=== PATIENT | male | born 1945 | race Caucasian/White ===

== ENCOUNTER 2024-03-12 22:29 | Inpatient (IN) | payer BC, MEDICAID, MEDICARE ==
[~2024-03-12] VITALS: Ht 172.7 cm; Wt 88.0 kg
[2024-03-12] MEDS ORDERED: VANCOMYCIN 1G PREMIX 200 ML IV ONE (23:00)
[2024-03-12 23:16] LABS: HEMATOCRIT. 37.5 % (42.0-52.0); HEMOGLOBIN. 11.6 g/dL (14.0-18.0); MEAN CORPUSCULAR HEMOGLOBIN 28.9 pg (28.0-32.0); MEAN CORPUSCULAR HGB CONC 30.8 g/dL (31.0-37.0); MEAN CORPUSCULAR VOLUME 93.8 fL (80.0-94.0); MEAN PLATELET VOLUME 8.1 fl (7.4-10.4); PLATELET 279 x1000/uL (130-400); RED CELL DISTRIBUTION WIDTH 21.2 % (11.6-14.6); WHITE BLOOD COUNT 10.8 x1000/uL (4.5-11.0)
[2024-03-12 23:17] LABS: CHLORIDE 110 mEq/L (98-107); POTASSIUM 5.7 mEq/L (3.5-5.1); SODIUM 146 mEq/L (136-145)
[2024-03-12 23:18] LABS: CARBON DIOXIDE 27 mEq/L (21-32)
[2024-03-12 23:23] LABS: CREATININE 2.5 mg/dL (0.6-1.3); GLUCOSE 70 mg/dL (70-105); UREA NITROGEN BLOOD 45 mg/dL (9-23)
[2024-03-12 23:25] LABS: ALANINE AMINOTRANSFERASE 986 IU/L (10-49); ALBUMIN 2.9 g/dL (3.2-4.8); BILIRUBIN DIRECT 0.5 mg/dL (<=3.0); BILIRUBIN TOTAL 0.8 mg/dL (0.1-1.0); DIFFERENTIAL COMMENT 1; INR 1.9; PROTEIN TOTAL 6.7 g/dL (6.0-8.3)
[2024-03-12] MEDS: SODIUM CHLORIDE 0.9% (SEPSIS BOLUS) IV ONE (23:26)
[2024-03-12 23:36] LABS: ASPARTATE AMINOTRANSFERASE 1675 IU/L (<34)
[2024-03-12 23:53] LABS: TROPONIN I HIGH SENSITIVITY 289 ng/L (3.0-53)
[2024-03-13] VITALS (86 sets, daily range): BP systolic 45–145; BP diastolic 30–97; PULSE 62–133; RESP 18–23; TEMP 36.00288–36.78072; O2SAT 94–100
[2024-03-13] MEDS ORDERED: ETOMIDATE 2MG/ML 10ML VIAL IV ONE (00:10)
[2024-03-13] MEDS: PIPERACILLIN/TAZO 3.375G/50ML 50 ML IV NR (00:15)
[2024-03-13 00:20] LABS: BG BASE EXCESS -4.5 mmol/L (-2.0-3.0); BG DEOXYHEMOGLOBIN 4.2 % (0.0-5.0); BG FRACTION INSPIRED OXYGEN 100; BG HCO3 ACT 26.2 mmol/L (21.0-28.0); BG OXYGEN SATURATION 95.8 % (94.0-98.0); BG OXYHEMOGLOBIN 94.8 % (94.0-98.0); BG PCO2 81.2 mmHg (35.0-48.0); BG PH 7.126 (7.350-7.450); BG PO2 105.6 mmHg (83.0-108.0); BG SAMPLE SITE RIGHT BRACHIAL; BG VENT MODE MASK - NRB
[2024-03-13] MEDS ORDERED: ALBUTEROL (0.083%) 2.5MG/3ML NEB HHN SCH (00:30)
[2024-03-13] MEDS ORDERED: CALCIUM GLUCONATE 1,000 MG in DEXT 5% WATER 100 ML IV ONE (00:30)
[2024-03-13] MEDS: VECURONIUM BROMIDE 10 MG/VIAL IV NR (00:39)
[2024-03-13] MEDS: ETOMIDATE 2MG/ML 10ML VIAL IV NR (00:40)
[2024-03-13 01:48] LABS: BG BASE EXCESS -2.2 mmol/L (-2.0-3.0); BG CARBOXYHEMOGLOBIN 0.4 % (0.5-1.5); BG DEOXYHEMOGLOBIN 2.3 % (0.0-5.0); BG FRACTION INSPIRED OXYGEN 100; BG HCO3 ACT 21.8 mmol/L (21.0-28.0); BG METHEMOGLOBIN 0.3 % (0.5-1.5); BG OXYGEN SATURATION 97.7 % (94.0-98.0); BG PCO2 35.1 mmHg (35.0-48.0); BG PH 7.412 (7.350-7.450); BG PO2 99.2 mmHg (83.0-108.0); BG SAMPLE SITE RIGHT BRACHIAL; BG TOTAL HEMOGLOBIN 11.7 g/dL (13.5-17.5); BG TOTAL RESPIRATORY RATE 20 b/min; BG VENT MODE VENT - AC
[2024-03-13] MEDS: VANCOMYCIN 1G PREMIX 200 ML IV NR (02:03)
[2024-03-13] MEDS: NOREPINEPHRINE 8MG/250ML PMX 250 ML IV PRN (02:06)
[2024-03-13] MEDS: CALCIUM GLUCONATE 1GM PREMIX 50 ML IV NR (02:16)
[2024-03-13] MEDS: INSULIN REGULAR (HUMULIN R) 1000UNITS/10ML VIAL IV NR (02:16)
[2024-03-13] MEDS: DEXTROSE 50% WATER 50ML SYRINGE IV NR (02:16)
[2024-03-13] MEDS: SODIUM BICARBONATE 8.4% 50MEQ/50ML SYR IV NR (02:16)
[2024-03-13] MEDS: PROPOFOL 10MG/ML 100ML 100 ML IV PRN ×2 (02:42→14:41)
[2024-03-13 07:09] LABS: PLATELET ESTIMATE NORMAL
[2024-03-13] MEDS ORDERED: CLONIDINE 0.1MG TABLET PO PRN (08:30)
[2024-03-13] MEDS ORDERED: IPRATROPIUM/ALBUTEROL 0.5-3(2.5)MG/3ML NEB HHN PRN (08:30)
[2024-03-13] MEDS ORDERED: DOCUSATE SODIUM 100MG CAPSULE PO PRN (08:30)
[2024-03-13] MEDS ORDERED: ONDANSETRON HCL 4MG/2ML INJ IV PRN (08:30)
[2024-03-13 10:19] LABS: TROPONIN I HIGH SENSITIVITY 1935 ng/L (3.0-53)
[2024-03-13] MEDS: DEXT 5%/0.45% NACL 1000ML 1,000 ML IV SCH (10:54)
[2024-03-13 11:25] LABS: CALCIUM 7.5 mg/dL (8.7-10.4); POTASSIUM 4.1 mEq/L (3.5-5.1)
[2024-03-13 11:30] LABS: CREATININE 2.4 mg/dL (0.6-1.3)
[2024-03-13 11:52] LABS: HEPATITIS B SURFACE ANTIGEN NEGATIVE (Negative)
[2024-03-13 11:58] LABS: HEMATOCRIT 33.6 % (42.0-52.0); HEMOGLOBIN 10.7 g/dL (14.0-18.0); MEAN CORPUSCULAR HEMOGLOBIN 28.7 pg (28.0-32.0); MEAN CORPUSCULAR HGB CONC 31.8 g/dL (31.0-37.0); MEAN CORPUSCULAR VOLUME 90.3 fL (80.0-94.0); PLATELET 211 x1000/uL (130-400); RED BLOOD CELL COUNT 3.73 mill/uL (4.7-6.1); WHITE BLOOD COUNT 7.8 x1000/uL (4.5-11.0)
[2024-03-13 12:13] LABS: HEPATITIS C AB NON REACTIVE (Neg) (Negative)
[2024-03-13 12:48] LABS: HEPATITIS B SURFACE ANTIGEN NEGATIVE (Negative)
[2024-03-13 12:58] LABS: CLARITY URINE TURBID (CLEAR); COLOR URINE DARK YELLOW (YELLOW); GLUCOSE URINE NEGATIVE (NEGATIVE); KETONES URINE NEGATIVE (NEGATIVE); LEUKOCYTE ESTERASE URINE 3+ (NEGATIVE); NITRITE URINE NEGATIVE (NEGATIVE); OCCULT BLOOD URINE 3+ (NEGATIVE); PH URINE 5.5 (4.5-8.0); PROTEIN URINE 3+ (NEGATIVE)
[2024-03-13 13:08] LABS: HEPATITIS A AB IGM NEGATIVE (Negative)
[2024-03-13] MEDS: PIPERACILLIN/TAZO 3.375G/50ML 50 ML IV SCH (13:08)
[2024-03-13 13:09] LABS: HEPATITIS B CORE AB IGM NEGATIVE (Negative); HEPATITIS C AB NON REACTIVE (Neg) (Negative)
[2024-03-13 13:47] LABS: SQUAMOUS EPITHELIAL CELL URINE NONE SEEN /lpf (RARE/1+)
[2024-03-13 13:48] LABS: BACTERIA URINE 4+; WBC URINE TNTC /hpf (0-2)
[2024-03-13 13:49] LABS: RBC URINE 50-100 /hpf (0-2)
[2024-03-13] MEDS: ENOXAPARIN 80MG/0.8ML SYR SUBCUT SCH (14:52)
[2024-03-13] MEDS: PANTOPRAZOLE SODIUM 40 MG/VIAL IV SCH (14:55)
[2024-03-13] MEDS: MIDODRINE HCL 5MG TABLET PO SCH (17:09)
[2024-03-13] MEDS: VANCOMYCIN 500MG PREMIX 100 ML IV SCH (20:54)
[2024-03-14] VITALS (99 sets, daily range): BP systolic 78–119; BP diastolic 55–88; PULSE 49–92; RESP 9–20; TEMP 36.72516–37.00296; O2SAT 95–100
[2024-03-14 05:29] LABS: BASOPHILS % 0.1 % (0.0-2.0); EOSINOPHILS % 0.4 % (0.0-5.0); HEMATOCRIT. 34.8 % (42.0-52.0); HEMOGLOBIN. 11.2 g/dL (14.0-18.0); LYMPHOCYTES % 10.3 % (20.0-50.0); MEAN CORPUSCULAR HEMOGLOBIN 29.1 pg (28.0-32.0); MEAN CORPUSCULAR HGB CONC 32.1 g/dL (31.0-37.0); MEAN CORPUSCULAR VOLUME 90.5 fL (80.0-94.0); MEAN PLATELET VOLUME 8.2 fl (7.4-10.4); MONOCYTES % 3.1 % (2.0-8.0); NEUTROPHILS % 86.1 % (40.0-76.0); PLATELET 148 x1000/uL (130-400); RED BLOOD CELL COUNT 3.84 mill/uL (4.7-6.1); RED CELL DISTRIBUTION WIDTH 23.1 % (11.6-14.6); WHITE BLOOD COUNT 7.2 x1000/uL (4.5-11.0)
[2024-03-14 05:36] LABS: CARBON DIOXIDE 26 mEq/L (21-32); CHLORIDE 111 mEq/L (98-107); POTASSIUM 3.4 mEq/L (3.5-5.1); SODIUM 146 mEq/L (136-145)
[2024-03-14 05:37] LABS: CALCIUM 7.2 mg/dL (8.7-10.4)
[2024-03-14 05:41] LABS: CREATININE 2.4 mg/dL (0.6-1.3); GLUCOSE 137 mg/dL (70-105); TROPONIN I HIGH SENSITIVITY 1174 ng/L (3.0-53)
[2024-03-14 05:42] LABS: TRIGLYCERIDE 174 mg/dL (0-150); UREA NITROGEN BLOOD 52 mg/dL (9-23)
[2024-03-14 05:43] LABS: ALANINE AMINOTRANSFERASE 808 IU/L (10-49); ALBUMIN 2.2 g/dL (3.2-4.8); ASPARTATE AMINOTRANSFERASE 928 IU/L (<34)
[2024-03-14 05:44] LABS: BILIRUBIN TOTAL 0.9 mg/dL (0.1-1.0)
[2024-03-14 05:46] LABS: DIFFERENTIAL COMMENT 1
[2024-03-14 05:54] LABS: PREALBUMIN < 5.0 mg/dl (10.0-40.0)
[2024-03-14] MEDS: KCL 20MEQ/100ML PREMIX 100 ML IV NR (11:31)
[2024-03-14 11:38] LABS: BG BASE EXCESS 3.9 mmol/L (-2.0-3.0); BG CARBOXYHEMOGLOBIN 0.4 % (0.5-1.5); BG DEOXYHEMOGLOBIN 1.4 % (0.0-5.0); BG FRACTION INSPIRED OXYGEN 40; BG HCO3 ACT 24.7 mmol/L (21.0-28.0); BG METHEMOGLOBIN 0.3 % (0.5-1.5); BG OXYGEN SATURATION 98.6 % (94.0-98.0); BG OXYHEMOGLOBIN 97.9 % (94.0-98.0); BG PCO2 25.7 mmHg (35.0-48.0); BG PO2 112.3 mmHg (83.0-108.0); BG SAMPLE SITE RIGHT BRACHIAL; BG TOTAL HEMOGLOBIN 11.4 g/dL (13.5-17.5); BG VENT MODE VENT - AC
[2024-03-14 15:26] LABS: BG BASE EXCESS 1.9 mmol/L (-2.0-3.0); BG CARBOXYHEMOGLOBIN 0.3 % (0.5-1.5); BG DEOXYHEMOGLOBIN 1.5 % (0.0-5.0); BG FRACTION INSPIRED OXYGEN 35; BG HCO3 ACT 23.6 mmol/L (21.0-28.0); BG METHEMOGLOBIN 0.3 % (0.5-1.5); BG OXYGEN SATURATION 98.5 % (94.0-98.0); BG OXYHEMOGLOBIN 97.9 % (94.0-98.0); BG PCO2 27.3 mmHg (35.0-48.0); BG PH 7.554 (7.350-7.450); BG PO2 127.9 mmHg (83.0-108.0); BG SAMPLE SITE RIGHT BRACHIAL; BG VENT MODE VENT - AC
[2024-03-14] MEDS: MEROPENEM 1G/100ML IV SCH (16:13)
[2024-03-14] MEDS: MIDODRINE HCL 5MG TABLET PO SCH (18:06)
[2024-03-14] MEDS: LORAZEPAM 2MG/ML INJ IV PRN (18:26)
[2024-03-15] VITALS (70 sets, daily range): BP systolic 88–117; BP diastolic 59–88; PULSE 63–77; RESP 7–35; TEMP 35.8362–36.83628; O2SAT 94–100
[2024-03-15 05:49] LABS: POTASSIUM 4.4 mEq/L (3.5-5.1)
[2024-03-15 05:50] LABS: CALCIUM 7.3 mg/dL (8.7-10.4)
[2024-03-15 05:55] LABS: CREATININE 2.1 mg/dL (0.6-1.3)
[2024-03-15 05:56] LABS: HEMATOCRIT 35.8 % (42.0-52.0); HEMOGLOBIN 11.5 g/dL (14.0-18.0); MEAN CORPUSCULAR HEMOGLOBIN 29.2 pg (28.0-32.0); MEAN CORPUSCULAR HGB CONC 32.1 g/dL (31.0-37.0); MEAN CORPUSCULAR VOLUME 91.2 fL (80.0-94.0); PLATELET 102 x1000/uL (130-400); RED BLOOD CELL COUNT 3.93 mill/uL (4.7-6.1); RED CELL DISTRIBUTION WIDTH 24.2 % (11.6-14.6)
[2024-03-15 09:07] LABS: COMPLEMENT C3 65 mg/dL (82-167); COMPLEMENT C4 10 mg/dL (12-38)
[2024-03-15] MEDS: MIDODRINE HCL 5MG TABLET PO SCH (09:15)
[2024-03-15] MEDS ORDERED: NALOXONE HCL 0.4MG/ML VIAL IV PRN (12:00)
[2024-03-15 13:07] LABS: ANTI-NUCLEAR ANTIBODIES DIRECT Negative (Negative)
[2024-03-15] MEDS: MORPHINE SULFATE 2 MG/ML INJ (NOT FOR IM USE) IV PRN (15:59)
[2024-03-15] MEDS: DOCUSATE SODIUM SUGAR FREE 100MG/10ML UDC NG PRN (15:59)
[2024-03-15] MEDS ORDERED: APIX5TAB PO (17:00)
[2024-03-15] MEDS ORDERED: EMPA10TA PO (17:06)
[2024-03-15] MEDS ORDERED: METO-396 PO (17:06)
[2024-03-15] MEDS ORDERED: ATOR20TA65 PO (17:06)
[2024-03-15] MEDS ORDERED: TAMS-11 PO (17:06)
[2024-03-15 17:19] LABS: BG BASE EXCESS 0.3 mmol/L (-2.0-3.0); BG CARBOXYHEMOGLOBIN 0.8 % (0.5-1.5); BG DEOXYHEMOGLOBIN 2.6 % (0.0-5.0); BG FRACTION INSPIRED OXYGEN 35; BG HCO3 ACT 23.9 mmol/L (21.0-28.0); BG OXYGEN SATURATION 97.4 % (94.0-98.0); BG OXYHEMOGLOBIN 96.6 % (94.0-98.0); BG PH 7.452 (7.350-7.450); BG PO2 100.7 mmHg (83.0-108.0); BG SAMPLE SITE UAL; BG TOTAL HEMOGLOBIN 11.4 g/dL (13.5-17.5); BG VENT MODE VENT - AC
[2024-03-15 17:55] LABS: INR 1.4; PARTIAL THROMBOPLASTIN TIME 40.5 sec (23.4-31.0); PROTHROMBIN TIME 14.9 sec (9.6-11.0)
[2024-03-15] MEDS: FUROSEMIDE 40MG/4ML VIAL IVP NR (18:42)
[2024-03-15] MEDS: LACTOBACILLUS GG CAPSULE GT SCH (20:07)
[2024-03-16] VITALS (46 sets, daily range): BP systolic 90–119; BP diastolic 51–81; PULSE 60–130; RESP 6–32; TEMP 36.33624–36.6696; O2SAT 92–100
[2024-03-16] MEDS: ATROPINE SULFATE 1MG/10ML SYR IV PRN (07:05)
[2024-03-16 11:01] LABS: BASOPHILS % 0.1 % (0.0-2.0); EOSINOPHILS % 0.1 % (0.0-5.0); HEMATOCRIT. 34.6 % (42.0-52.0); HEMOGLOBIN. 10.6 g/dL (14.0-18.0); LYMPHOCYTES % 13.8 % (20.0-50.0); MEAN CORPUSCULAR HGB CONC 30.5 g/dL (31.0-37.0); MEAN CORPUSCULAR VOLUME 91.8 fL (80.0-94.0); MEAN PLATELET VOLUME 8.7 fl (7.4-10.4); MONOCYTES % 5.9 % (2.0-8.0); NEUTROPHILS % 80.1 % (40.0-76.0); PLATELET 70 x1000/uL (130-400); POTASSIUM 3.2 mEq/L (3.5-5.1); RED BLOOD CELL COUNT 3.76 mill/uL (4.7-6.1); RED CELL DISTRIBUTION WIDTH 25.9 % (11.6-14.6); WHITE BLOOD COUNT 6.8 x1000/uL (4.5-11.0)
[2024-03-16 11:02] LABS: CALCIUM 7.4 mg/dL (8.7-10.4)
[2024-03-16 11:07] LABS: CREATININE 1.8 mg/dL (0.6-1.3)
[2024-03-16 11:24] LABS: DIFFERENTIAL COMMENT 1
[2024-03-16 12:01] LABS: ALANINE AMINOTRANSFERASE 532 IU/L (10-49); ASPARTATE AMINOTRANSFERASE 306 IU/L (<34)
[2024-03-16 12:02] LABS: ALBUMIN 2.1 g/dL (3.2-4.8); BILIRUBIN DIRECT 0.4 mg/dL (<=3.0); BILIRUBIN TOTAL 0.8 mg/dL (0.1-1.0); PROTEIN TOTAL 4.8 g/dL (6.0-8.3)
[2024-03-16] MEDS ORDERED: LIDOCAINE HCL 1% 10 MG/ML 10ML VIAL ONE (12:27)
[2024-03-16 13:17] LABS: ALBUMIN 2.1 g/dL (3.2-4.8)
[2024-03-16] MEDS: ACETAMINOPHEN 325MG TABLET PO PRN (17:36)
[2024-03-16] MEDS: APIXABAN 5 MG TABLET PO SCH (17:36)
[2024-03-16] MEDS: FOLIC ACID/VITAMIN B COMP W-C TABLET PO SCH (17:36)
[2024-03-17] VITALS (81 sets, daily range): BP systolic 70–121; BP diastolic 42–102; PULSE 74–141; RESP 8–32; TEMP 36.3918–36.9474; O2SAT 99–100
[2024-03-17 05:20] LABS: BASOPHILS % 0.2 % (0.0-2.0); EOSINOPHILS % 0.1 % (0.0-5.0); HEMATOCRIT. 34.6 % (42.0-52.0); HEMOGLOBIN. 11.3 g/dL (14.0-18.0); MEAN CORPUSCULAR HEMOGLOBIN 29.1 pg (28.0-32.0); MEAN CORPUSCULAR HGB CONC 32.6 g/dL (31.0-37.0); MEAN CORPUSCULAR VOLUME 89.5 fL (80.0-94.0); MEAN PLATELET VOLUME 8.9 fl (7.4-10.4); MONOCYTES % 9.4 % (2.0-8.0); NEUTROPHILS % 72.3 % (40.0-76.0); PLATELET 68 x1000/uL (130-400); RED BLOOD CELL COUNT 3.87 mill/uL (4.7-6.1); RED CELL DISTRIBUTION WIDTH 26.7 % (11.6-14.6); WHITE BLOOD COUNT 8.2 x1000/uL (4.5-11.0)
[2024-03-17 05:30] LABS: CHLORIDE 111 mEq/L (98-107); POTASSIUM 2.9 mEq/L (3.5-5.1); SODIUM 148 mEq/L (136-145)
[2024-03-17 05:32] LABS: CALCIUM 7.7 mg/dL (8.7-10.4); CARBON DIOXIDE 29 mEq/L (21-32)
[2024-03-17 05:35] LABS: DIFFERENTIAL COMMENT 1
[2024-03-17 05:36] LABS: ADD RBC MORPHOLOGY YES
[2024-03-17 05:37] LABS: CREATININE 1.4 mg/dL (0.6-1.3); GLUCOSE 53 mg/dL (70-105); UREA NITROGEN BLOOD 40 mg/dL (9-23)
[2024-03-17 05:38] LABS: ALANINE AMINOTRANSFERASE 413 IU/L (10-49)
[2024-03-17 05:39] LABS: ALBUMIN 2.3 g/dL (3.2-4.8); ASPARTATE AMINOTRANSFERASE 202 IU/L (<34); BILIRUBIN DIRECT 0.6 mg/dL (<=3.0)
[2024-03-17 05:40] LABS: BILIRUBIN TOTAL 1.2 mg/dL (0.1-1.0); PROTEIN TOTAL 5.1 g/dL (6.0-8.3)
[2024-03-17] MEDS: DEXTROSE 50% WATER 50ML SYRINGE IV ONE (06:40)
[2024-03-17] MEDS: MAGNESIUM 2 G PREMIX 50 ML IV NR (10:14)
[2024-03-17] MEDS: BLOOD SUGAR DIAGNOSTIC STRIP TEST SCH (11:30)
[2024-03-17] MEDS: INSULIN LISPRO 100 UNITS/ML SUBCUT SCH (12:00)
[2024-03-17] MEDS: POTASSIUM CHLORIDE 20MEQ/PACKET NG SCH (13:21)
[2024-03-17] MEDS: PHENYLEPHRINE 50MG/250ML PMX 250 ML IV PRN (13:21)
[2024-03-17] MEDS: FUROSEMIDE 40MG/4ML VIAL IVP SCH (13:21)
[2024-03-17 14:03] LABS: ANISOCYTOSIS 3+; PLATELET ESTIMATE MARKEDLY DECREASED
[2024-03-17 21:13] LABS: BODY FLUID RBC 1813 /cu mm (0-2000); BODY FLUID WBC 38 /cu mm (0-200)
[2024-03-17 21:14] LABS: BODY FLUID MONOCYTES 3 %
[2024-03-17] MEDS: AMIODARONE 150MG/100ML D5W 100 ML IV NR (22:18)
[2024-03-17 22:38] LABS: BG BASE EXCESS 4.2 mmol/L (-2.0-3.0); BG CARBOXYHEMOGLOBIN 0.8 % (0.5-1.5); BG DEOXYHEMOGLOBIN 1.8 % (0.0-5.0); BG FRACTION INSPIRED OXYGEN 35; BG HCO3 ACT 28.8 mmol/L (21.0-28.0); BG METHEMOGLOBIN 0.3 % (0.5-1.5); BG OXYGEN SATURATION 98.2 % (94.0-98.0); BG OXYHEMOGLOBIN 97.1 % (94.0-98.0); BG PCO2 43.3 mmHg (35.0-48.0); BG PH 7.441 (7.350-7.450); BG PO2 113.5 mmHg (83.0-108.0); BG SAMPLE SITE RIGHT RADIAL; BG TOTAL HEMOGLOBIN 11.9 g/dL (13.5-17.5); BG VENT MODE VENT - SIMV
[2024-03-17 22:55] LABS: CHLORIDE 112 mEq/L (98-107); POTASSIUM 3.7 mEq/L (3.5-5.1); SODIUM 147 mEq/L (136-145)
[2024-03-17 22:56] LABS: CALCIUM 7.5 mg/dL (8.7-10.4); CARBON DIOXIDE 29 mEq/L (21-32)
[2024-03-17 23:01] LABS: CREATININE 1.3 mg/dL (0.6-1.3); GLUCOSE 107 mg/dL (70-105); UREA NITROGEN BLOOD 45 mg/dL (9-23)
[2024-03-17 23:03] LABS: PHOSPHORUS 2.9 mg/dL (2.5-4.9)
[2024-03-17] MEDS: AMIODARONE HCL 900 MG in DEXT 5% WATER 482 ML IV PRN (23:40)
[2024-03-18] VITALS (107 sets, daily range): BP systolic 83–140; BP diastolic 59–114; PULSE 76–131; RESP 8–38; TEMP 36.3918–36.72516; O2SAT 95–100
[2024-03-18 06:39] LABS: CHLORIDE 112 mEq/L (98-107); POTASSIUM 3.5 mEq/L (3.5-5.1); SODIUM 147 mEq/L (136-145)
[2024-03-18 06:43] LABS: CALCIUM 8.1 mg/dL (8.7-10.4); CARBON DIOXIDE 30 mEq/L (21-32)
[2024-03-18 06:46] LABS: BASOPHILS % 0.3 % (0.0-2.0); EOSINOPHILS % 0.3 % (0.0-5.0); HEMATOCRIT. 33.6 % (42.0-52.0); HEMOGLOBIN. 10.7 g/dL (14.0-18.0); LYMPHOCYTES % 18.3 % (20.0-50.0); MEAN CORPUSCULAR HEMOGLOBIN 29.3 pg (28.0-32.0); MEAN CORPUSCULAR HGB CONC 31.8 g/dL (31.0-37.0); MEAN CORPUSCULAR VOLUME 91.9 fL (80.0-94.0); MEAN PLATELET VOLUME 8.9 fl (7.4-10.4); NEUTROPHILS % 72.1 % (40.0-76.0); PLATELET 78 x1000/uL (130-400); RED BLOOD CELL COUNT 3.66 mill/uL (4.7-6.1); RED CELL DISTRIBUTION WIDTH 27.4 % (11.6-14.6)
[2024-03-18 06:47] LABS: ALANINE AMINOTRANSFERASE 288 IU/L (10-49); UREA NITROGEN BLOOD 40 mg/dL (9-23)
[2024-03-18 06:48] LABS: CREATININE 1.2 mg/dL (0.6-1.3); GLUCOSE 104 mg/dL (70-105)
[2024-03-18 06:49] LABS: ASPARTATE AMINOTRANSFERASE 100 IU/L (<34)
[2024-03-18 06:50] LABS: ALBUMIN 2.3 g/dL (3.2-4.8); BILIRUBIN DIRECT 0.4 mg/dL (<=3.0); PHOSPHORUS 2.6 mg/dL (2.5-4.9)
[2024-03-18 06:51] LABS: BILIRUBIN TOTAL 0.7 mg/dL (0.1-1.0); PROTEIN TOTAL 5.1 g/dL (6.0-8.3)
[2024-03-18 06:57] LABS: DIFFERENTIAL COMMENT 1
[2024-03-18 06:58] LABS: ADD RBC MORPHOLOGY NO
[2024-03-18] MEDS: FUROSEMIDE 40MG/4ML VIAL IVP SCH (08:42)
[2024-03-18] MEDS: POTASSIUM CHLORIDE 20MEQ/PACKET NG NR (08:48)
[2024-03-18] MEDS ORDERED: MIDAZOLAM HCL 100 MG in SODIUM CHLORIDE 0.9% 80 ML IV PRN (14:30)
[2024-03-18] MEDS: MIDAZOLAM 100MG/100ML PREMIX IV PRN (15:48)
[2024-03-18] MEDS: AMIODARONE 200MG TABLET PO SCH (21:08)
[2024-03-19] VITALS (67 sets, daily range): BP systolic 93–157; BP diastolic 53–108; PULSE 65–118; RESP 12–29; TEMP 36.22512–37.16964; O2SAT 99–100
[2024-03-19 04:35] LABS: BASOPHILS % 0.3 % (0.0-2.0); EOSINOPHILS % 0.3 % (0.0-5.0); HEMATOCRIT. 33.6 % (42.0-52.0); HEMOGLOBIN. 10.8 g/dL (14.0-18.0); LYMPHOCYTES % 16.2 % (20.0-50.0); MEAN CORPUSCULAR HEMOGLOBIN 29.1 pg (28.0-32.0); MEAN CORPUSCULAR HGB CONC 32.2 g/dL (31.0-37.0); MEAN CORPUSCULAR VOLUME 90.5 fL (80.0-94.0); MEAN PLATELET VOLUME 8.9 fl (7.4-10.4); MONOCYTES % 8.9 % (2.0-8.0); NEUTROPHILS % 74.3 % (40.0-76.0); PLATELET 85 x1000/uL (130-400); RED BLOOD CELL COUNT 3.71 mill/uL (4.7-6.1); RED CELL DISTRIBUTION WIDTH 28.4 % (11.6-14.6); WHITE BLOOD COUNT 5.6 x1000/uL (4.5-11.0)
[2024-03-19 04:41] LABS: CHLORIDE 110 mEq/L (98-107); POTASSIUM 2.9 mEq/L (3.5-5.1); SODIUM 147 mEq/L (136-145)
[2024-03-19 04:42] LABS: CALCIUM 7.9 mg/dL (8.7-10.4); CARBON DIOXIDE 32 mEq/L (21-32)
[2024-03-19 05:19] LABS: CREATININE 0.8 mg/dL (0.6-1.3); GLUCOSE 119 mg/dL (70-105); UREA NITROGEN BLOOD 34 mg/dL (9-23)
[2024-03-19 05:21] LABS: ALANINE AMINOTRANSFERASE 201 IU/L (10-49); ALBUMIN 2.3 g/dL (3.2-4.8); ASPARTATE AMINOTRANSFERASE 54 IU/L (<34); BILIRUBIN DIRECT 0.4 mg/dL (<=3.0); BILIRUBIN TOTAL 0.7 mg/dL (0.1-1.0); PROTEIN TOTAL 5.2 g/dL (6.0-8.3)
[2024-03-19 06:57] LABS: DIFFERENTIAL COMMENT 1
[2024-03-19] MEDS: POTASSIUM CHLORIDE 20MEQ/PACKET PO SCH (09:02)
[2024-03-19] MEDS: ENOXAPARIN 80MG/0.8ML SYR SUBCUT NR (13:45)
[2024-03-19] MEDS: SODIUM CHLORIDE 0.9% IV NR (15:28)
[2024-03-19] MEDS: ALTEPLASE IV NR (15:28)
[2024-03-19] MEDS: DIGOXIN 500MCG/2ML AMP IV NR ×2 (15:30→20:08)
[2024-03-19] MEDS: MORPHINE SULFATE 2 MG/ML INJ (NOT FOR IM USE) IV PRN (15:46)
[2024-03-19] MEDS: BISACODYL 10MG SUPP PR NR (17:52)
[2024-03-19 18:26] LABS: ALBUMIN 2.6 g/dL (3.2-4.8)
[2024-03-19] MEDS: LORAZEPAM 2MG/ML INJ IV PRN (22:18)
[2024-03-20] VITALS (108 sets, daily range): BP systolic 72–136; BP diastolic 44–82; PULSE 50–114; RESP 11–25; TEMP 36.3918–36.6696; O2SAT 95–100
[2024-03-20] MEDS: MORPHINE SULFATE 4 MG/ML INJ (FOR IV/IM USE) IM NR (00:35)
[2024-03-20] MEDS: MIDAZOLAM 100MG/100ML PMX 100 ML IV PRN (00:37)
[2024-03-20] MEDS ORDERED: PHENYLEPHRINE 100 MG in DEXT 5% WATER 240 ML IV PRN (01:45)
[2024-03-20 05:48] LABS: CHLORIDE 110 mEq/L (98-107); POTASSIUM 3.3 mEq/L (3.5-5.1); SODIUM 148 mEq/L (136-145)
[2024-03-20 05:49] LABS: BASOPHILS % 0.3 % (0.0-2.0); EOSINOPHILS % 0.3 % (0.0-5.0); HEMATOCRIT. 33.9 % (42.0-52.0); HEMOGLOBIN. 10.8 g/dL (14.0-18.0); LYMPHOCYTES % 14.9 % (20.0-50.0); MEAN CORPUSCULAR HEMOGLOBIN 29.1 pg (28.0-32.0); MEAN CORPUSCULAR VOLUME 90.9 fL (80.0-94.0); NEUTROPHILS % 75.5 % (40.0-76.0); PLATELET 107 x1000/uL (130-400); RED BLOOD CELL COUNT 3.73 mill/uL (4.7-6.1); RED CELL DISTRIBUTION WIDTH 27.4 % (11.6-14.6)
[2024-03-20 05:51] LABS: CALCIUM 7.9 mg/dL (8.7-10.4); CARBON DIOXIDE 35 mEq/L (21-32)
[2024-03-20 05:53] LABS: UREA NITROGEN BLOOD 27 mg/dL (9-23)
[2024-03-20 05:56] LABS: CREATININE 0.7 mg/dL (0.6-1.3); GLUCOSE 85 mg/dL (70-105)
[2024-03-20 05:57] LABS: ALBUMIN 2.2 g/dL (3.2-4.8)
[2024-03-20 05:58] LABS: ALANINE AMINOTRANSFERASE 154 IU/L (10-49); ASPARTATE AMINOTRANSFERASE 44 IU/L (<34); BILIRUBIN DIRECT 0.4 mg/dL (<=3.0); BILIRUBIN TOTAL 0.9 mg/dL (0.1-1.0)
[2024-03-20 06:33] LABS: DIFFERENTIAL COMMENT 1
[2024-03-20 08:52] LABS: AMYLASE BODY FLUID < 20 IU/L; PROTEIN BODY FLUID 2.2 gm/dL
[2024-03-20 10:26] LABS: BG BASE EXCESS 10.1 mmol/L (-2.0-3.0); BG DEOXYHEMOGLOBIN 1.6 % (0.0-5.0); BG FRACTION INSPIRED OXYGEN 35; BG HCO3 ACT 34.6 mmol/L (21.0-28.0); BG METHEMOGLOBIN 0.3 % (0.5-1.5); BG OXYGEN SATURATION 98.4 % (94.0-98.0); BG OXYHEMOGLOBIN 97.1 % (94.0-98.0); BG PCO2 46.1 mmHg (35.0-48.0); BG PH 7.493 (7.350-7.450); BG PO2 110.6 mmHg (83.0-108.0); BG SAMPLE SITE RIGHT RADIAL; BG TOTAL HEMOGLOBIN 11.7 g/dL (13.5-17.5); BG VENT MODE VENT - AC
[2024-03-20] MEDS: MAGNESIUM 2 G PREMIX 50 ML IV NR (11:32)
[2024-03-20] MEDS: POTASSIUM PHOSPHATE 20 MMOL in DEXT 5% WATER 243.3333 ML IV NR (11:32)
[2024-03-20 15:46] LABS: PROTEIN BODY FLUID 2.3 gm/dL
[2024-03-20] MEDS: SORBITOL 70% SOLN 30ML NG NR (17:37)
[2024-03-20 19:08] LABS: BODY FLUID MONOCYTES 6 %; BODY FLUID RBC 470 /cu mm (0-2000); BODY FLUID WBC 89 /cu mm (0-200)
[2024-03-20] MEDS: SENNOSIDES 8.6MG TABLET PO SCH (20:48)
[2024-03-20] MEDS: AMIODARONE 200MG TABLET NG SCH (20:48)
[2024-03-21] VITALS (104 sets, daily range): BP systolic 91–147; BP diastolic 49–83; PULSE 64–90; RESP 11–28; TEMP 36.16956–36.72516; O2SAT 99–100
[2024-03-21 05:19] LABS: CARBON DIOXIDE 36 mEq/L (21-32); CHLORIDE 107 mEq/L (98-107); POTASSIUM 3.6 mEq/L (3.5-5.1); SODIUM 148 mEq/L (136-145)
[2024-03-21 05:20] LABS: CALCIUM 8.8 mg/dL (8.7-10.4)
[2024-03-21 05:25] LABS: CREATININE 0.7 mg/dL (0.6-1.3); GLUCOSE 88 mg/dL (70-105); UREA NITROGEN BLOOD 25 mg/dL (9-23)
[2024-03-21 05:27] LABS: BASOPHILS % 0.2 % (0.0-2.0); EOSINOPHILS % 0.9 % (0.0-5.0); HEMATOCRIT. 40.9 % (42.0-52.0); HEMOGLOBIN. 12.9 g/dL (14.0-18.0); LYMPHOCYTES % 19.2 % (20.0-50.0); MEAN CORPUSCULAR HEMOGLOBIN 28.9 pg (28.0-32.0); MEAN CORPUSCULAR HGB CONC 31.5 g/dL (31.0-37.0); MEAN CORPUSCULAR VOLUME 91.8 fL (80.0-94.0); MEAN PLATELET VOLUME 9.3 fl (7.4-10.4); MONOCYTES % 7.3 % (2.0-8.0); NEUTROPHILS % 72.4 % (40.0-76.0); PHOSPHORUS 2.3 mg/dL (2.5-4.9); PLATELET 147 x1000/uL (130-400); RED BLOOD CELL COUNT 4.45 mill/uL (4.7-6.1); RED CELL DISTRIBUTION WIDTH 28.4 % (11.6-14.6); WHITE BLOOD COUNT 6.4 x1000/uL (4.5-11.0)
[2024-03-21 06:54] LABS: DIFFERENTIAL COMMENT 1
[2024-03-21] MEDS: DOCUSATE SODIUM SUGAR FREE 100MG/10ML UDC NG SCH (08:23)
[2024-03-21] MEDS: POTASSIUM PHOSPHATE 20 MMOL in DEXT 5% WATER 243.3333 ML IV NR (09:12)
[2024-03-22] VITALS (81 sets, daily range): BP systolic 107–159; BP diastolic 59–91; PULSE 68–94; RESP 10–28; TEMP 36.33624–36.72516; O2SAT 83–100
[2024-03-22 06:13] LABS: CALCIUM 8.6 mg/dL (8.7-10.4); CARBON DIOXIDE 37 mEq/L (21-32); CHLORIDE 109 mEq/L (98-107); POTASSIUM 3.5 mEq/L (3.5-5.1); SODIUM 150 mEq/L (136-145)
[2024-03-22 06:18] LABS: BASOPHILS % 0.3 % (0.0-2.0); EOSINOPHILS % 0.8 % (0.0-5.0); HEMATOCRIT. 33.5 % (42.0-52.0); HEMOGLOBIN. 10.9 g/dL (14.0-18.0); LYMPHOCYTES % 13.8 % (20.0-50.0); MEAN CORPUSCULAR HEMOGLOBIN 29.3 pg (28.0-32.0); MEAN CORPUSCULAR HGB CONC 32.4 g/dL (31.0-37.0); MEAN CORPUSCULAR VOLUME 90.5 fL (80.0-94.0); MONOCYTES % 5.4 % (2.0-8.0); NEUTROPHILS % 79.7 % (40.0-76.0); PLATELET 150 x1000/uL (130-400); RED BLOOD CELL COUNT 3.71 mill/uL (4.7-6.1); RED CELL DISTRIBUTION WIDTH 27.5 % (11.6-14.6); WHITE BLOOD COUNT 6.2 x1000/uL (4.5-11.0)
[2024-03-22 06:19] LABS: CREATININE 0.6 mg/dL (0.6-1.3); GLUCOSE 83 mg/dL (70-105); UREA NITROGEN BLOOD 24 mg/dL (9-23)
[2024-03-22 06:22] LABS: INR 1.1
[2024-03-22 06:29] LABS: DIFFERENTIAL COMMENT 1
[2024-03-22] MEDS ORDERED: ROCURONIUM BROMIDE 10MG/ML VIAL 5ML IV ONE (06:53)
[2024-03-22] MEDS ORDERED: PROPOFOL 200MG/20ML VIAL IV ONE (06:54)
[2024-03-22] MEDS ORDERED: FENTANYL CITRATE/PF 50MCG/ML 2ML VIAL ONE (06:54)
[2024-03-22] MEDS ORDERED: PHENYLEPHRINE HCL 10MG/ML 1ML IV ONE (07:25)
[2024-03-22] MEDS: DEXTROSE 5% WATER 1,000 ML IV SCH (15:00)
[2024-03-22] MEDS: METOCLOPRAMIDE HCL 10MG/2ML VIAL IV SCH (17:12)
[2024-03-22] MEDS: DEXTROSE 50% WATER 50ML SYRINGE IV PRN (17:45)
[2024-03-23] VITALS (20 sets, daily range): BP systolic 82–164; BP diastolic 52–90; PULSE 89–139; RESP 12–31; TEMP 36.61404–38.00304; O2SAT 95–100
[2024-03-23] MEDS: LIDOCAINE HCL 4% (40MG/ML) SOLN 50ML TOP NR (05:00)
[2024-03-23] MEDS: AMIODARONE 200MG TABLET NG SCH (09:16)
[2024-03-23 09:33] LABS: BASOPHILS % 0.2 % (0.0-2.0); EOSINOPHILS % 0.2 % (0.0-5.0); HEMATOCRIT. 34.7 % (42.0-52.0); LYMPHOCYTES % 13.6 % (20.0-50.0); MEAN CORPUSCULAR HEMOGLOBIN 28.8 pg (28.0-32.0); MEAN CORPUSCULAR HGB CONC 31.9 g/dL (31.0-37.0); MEAN CORPUSCULAR VOLUME 90.4 fL (80.0-94.0); MEAN PLATELET VOLUME 8.9 fl (7.4-10.4); MONOCYTES % 3.9 % (2.0-8.0); NEUTROPHILS % 82.1 % (40.0-76.0); PLATELET 184 x1000/uL (130-400); RED BLOOD CELL COUNT 3.84 mill/uL (4.7-6.1); RED CELL DISTRIBUTION WIDTH 26.7 % (11.6-14.6); WHITE BLOOD COUNT 10.1 x1000/uL (4.5-11.0)
[2024-03-23 09:35] LABS: DIFFERENTIAL COMMENT 1
[2024-03-23 09:36] LABS: ADD RBC MORPHOLOGY NO
[2024-03-23 09:39] LABS: CHLORIDE 109 mEq/L (98-107); POTASSIUM 3.8 mEq/L (3.5-5.1); SODIUM 148 mEq/L (136-145)
[2024-03-23 09:40] LABS: CARBON DIOXIDE 36 mEq/L (21-32)
[2024-03-23 09:41] LABS: CALCIUM 8.6 mg/dL (8.7-10.4); INR 1.1; PROTHROMBIN TIME 11.7 sec (9.6-11.0)
[2024-03-23 09:45] LABS: CREATININE 0.6 mg/dL (0.6-1.3); GLUCOSE 89 mg/dL (70-105); UREA NITROGEN BLOOD 20 mg/dL (9-23)
[2024-03-23] MEDS: MORPHINE SULFATE 2 MG/ML INJ (NOT FOR IM USE) IV PRN (11:51)
[2024-03-23] MEDS: BLOOD SUGAR DIAGNOSTIC STRIP TEST SCH (11:51)
[2024-03-23] MEDS: INSULIN LISPRO 100 UNITS/ML SUBCUT SCH (12:00)
[2024-03-23] MEDS: DIGOXIN 500MCG/2ML AMP IV SCH ×2 (13:07→18:01)
[2024-03-23] MEDS ORDERED: EPHEDRINE SULFATE 50MG/ML VIAL ONE (15:19)
[2024-03-23] MEDS ORDERED: PROPOFOL 200MG/20ML VIAL IV ONE (15:19)
[2024-03-24] VITALS (23 sets, daily range): BP systolic 99–146; BP diastolic 54–66; PULSE 70–96; RESP 9–24; TEMP 36.28068–37.2252; O2SAT 100
[2024-03-24] MEDS: PIPERACILLIN/TAZO 3.375G/50ML 50 ML IV ONE (02:10)
[2024-03-24] MEDS: FAMOTIDINE 20MG/2ML VIAL IV SCH (08:17)
[2024-03-24] MEDS: CARVEDILOL 3.125 MG TABLET NG NR (10:31)
[2024-03-24 12:09] LABS: HEMATOCRIT 29.9 % (42.0-52.0); HEMOGLOBIN 9.2 g/dL (14.0-18.0)
[2024-03-24] MEDS: CARVEDILOL 3.125 MG TABLET NG SCH (20:39)
[2024-03-24] MEDS: MICAFUNGIN 100 MG in SODIUM CHLORIDE 0.9% 100 ML IV SCH (23:32)
[2024-03-25] VITALS (23 sets, daily range): BP systolic 109–148; BP diastolic 61–108; PULSE 60–83; RESP 9–24; TEMP 36.114–36.83628; O2SAT 97–100
[2024-03-25 05:47] LABS: BASOPHILS % 0.3 % (0.0-2.0); EOSINOPHILS % 1.1 % (0.0-5.0); HEMATOCRIT. 29.7 % (42.0-52.0); HEMOGLOBIN. 9.4 g/dL (14.0-18.0); LYMPHOCYTES % 13.7 % (20.0-50.0); MEAN CORPUSCULAR HEMOGLOBIN 29.1 pg (28.0-32.0); MEAN CORPUSCULAR HGB CONC 31.7 g/dL (31.0-37.0); MEAN CORPUSCULAR VOLUME 91.5 fL (80.0-94.0); MEAN PLATELET VOLUME 9.3 fl (7.4-10.4); NEUTROPHILS % 80.9 % (40.0-76.0); PLATELET 148 x1000/uL (130-400); RED BLOOD CELL COUNT 3.24 mill/uL (4.7-6.1); RED CELL DISTRIBUTION WIDTH 25.6 % (11.6-14.6); WHITE BLOOD COUNT 8.6 x1000/uL (4.5-11.0)
[2024-03-25 06:02] LABS: CARBON DIOXIDE 32 mEq/L (21-32); CHLORIDE 104 mEq/L (98-107); POTASSIUM 4.5 mEq/L (3.5-5.1); SODIUM 140 mEq/L (136-145)
[2024-03-25 06:03] LABS: CALCIUM 8.1 mg/dL (8.7-10.4)
[2024-03-25 06:07] LABS: CREATININE 0.6 mg/dL (0.6-1.3)
[2024-03-25 06:08] LABS: GLUCOSE 106 mg/dL (70-105); UREA NITROGEN BLOOD 23 mg/dL (9-23)
[2024-03-25 06:24] LABS: DIFFERENTIAL COMMENT 1
[2024-03-25] MEDS: APIXABAN 5 MG TABLET PO SCH (10:02)
[2024-03-25] MEDS: CARVEDILOL 6.25 MG TABLET GT SCH (10:02)
[2024-03-25] MEDS: MAGNESIUM 2 G PREMIX 50 ML IV ONE (11:06)
[2024-03-25 12:53] LABS: CHLORIDE 105 mEq/L (98-107); POTASSIUM 4.4 mEq/L (3.5-5.1); SODIUM 138 mEq/L (136-145)
[2024-03-25 12:54] LABS: CALCIUM 7.9 mg/dL (8.7-10.4); CARBON DIOXIDE 31 mEq/L (21-32)
[2024-03-25 12:59] LABS: CREATININE 0.5 mg/dL (0.6-1.3); GLUCOSE 88 mg/dL (70-105); UREA NITROGEN BLOOD 22 mg/dL (9-23)
[2024-03-25] MEDS: POLYMYXIN B SULFATE IV NR (17:00)
[2024-03-25] MEDS: SODIUM CHLORIDE 0.9% IV SCH (17:00)
[2024-03-25] MEDS: DEXT 5% IV NR (17:00)
[2024-03-25] MEDS: SULBACTAM IV SCH (17:00)
[2024-03-25] MEDS: AMPICILLIN IV SCH (17:00)
[2024-03-25] MEDS: WATER IV NR (17:00)
[2024-03-25] MEDS: DIGOXIN 125MCG TABLET GT SCH (19:03)
[2024-03-26] VITALS (19 sets, daily range): BP systolic 97–159; BP diastolic 57–93; PULSE 66–85; RESP 9–35; TEMP 36.16956–36.83628; O2SAT 98–100
[2024-03-26 05:57] LABS: CARBON DIOXIDE 29 mEq/L (21-32); CHLORIDE 105 mEq/L (98-107); POTASSIUM 4.1 mEq/L (3.5-5.1); SODIUM 138 mEq/L (136-145)
[2024-03-26 05:58] LABS: CALCIUM 8.3 mg/dL (8.7-10.4)
[2024-03-26 06:03] LABS: CREATININE 0.5 mg/dL (0.6-1.3); GLUCOSE 109 mg/dL (70-105); UREA NITROGEN BLOOD 21 mg/dL (9-23)
[2024-03-26 06:05] LABS: PHOSPHORUS 1.6 mg/dL (2.5-4.9)
[2024-03-26 06:19] LABS: BASOPHILS % 0.5 % (0.0-2.0); EOSINOPHILS % 2.2 % (0.0-5.0); HEMATOCRIT. 30.7 % (42.0-52.0); HEMOGLOBIN. 9.7 g/dL (14.0-18.0); LYMPHOCYTES % 16.6 % (20.0-50.0); MEAN CORPUSCULAR HEMOGLOBIN 28.5 pg (28.0-32.0); MEAN CORPUSCULAR HGB CONC 31.5 g/dL (31.0-37.0); MEAN CORPUSCULAR VOLUME 90.5 fL (80.0-94.0); MEAN PLATELET VOLUME 9.5 fl (7.4-10.4); MONOCYTES % 4.3 % (2.0-8.0); NEUTROPHILS % 76.4 % (40.0-76.0); PLATELET 171 x1000/uL (130-400); RED BLOOD CELL COUNT 3.39 mill/uL (4.7-6.1); RED CELL DISTRIBUTION WIDTH 25.7 % (11.6-14.6); WHITE BLOOD COUNT 7.5 x1000/uL (4.5-11.0)
[2024-03-26] MEDS: DEXT 5% IV SCH (06:21)
[2024-03-26] MEDS: POLYMYXIN B SULFATE IV SCH (06:21)
[2024-03-26] MEDS: WATER IV SCH (06:21)
[2024-03-26 07:20] LABS: DIFFERENTIAL COMMENT 1
[2024-03-26] MEDS: MAGNESIUM 2 G PREMIX 50 ML IV NR (10:26)
[2024-03-26] MEDS: SODIUM PHOSPHATE IV NR (12:29)
[2024-03-26] MEDS: SODIUM CHLORIDE 0.9% IV NR (12:29)
[2024-03-27] VITALS (22 sets, daily range): BP systolic 95–138; BP diastolic 54–81; PULSE 65–78; RESP 15–31; TEMP 36.6696–36.78072; O2SAT 96–100
[2024-03-27 07:51] LABS: CARBON DIOXIDE 29 mEq/L (21-32); CHLORIDE 106 mEq/L (98-107); POTASSIUM 4.6 mEq/L (3.5-5.1); SODIUM 139 mEq/L (136-145)
[2024-03-27 07:52] LABS: CALCIUM 8.1 mg/dL (8.7-10.4)
[2024-03-27 07:57] LABS: CREATININE 0.5 mg/dL (0.6-1.3); GLUCOSE 65 mg/dL (70-105); UREA NITROGEN BLOOD 20 mg/dL (9-23)
[2024-03-27 07:59] LABS: DIGOXIN 1.3 ng/mL (0.8-2.0)
[2024-03-27 08:00] LABS: PHOSPHORUS 2.4 mg/dL (2.5-4.9)
[2024-03-27 08:07] LABS: BASOPHILS % 0.8 % (0.0-2.0); EOSINOPHILS % 2.1 % (0.0-5.0); HEMOGLOBIN. 9.4 g/dL (14.0-18.0); MEAN CORPUSCULAR HEMOGLOBIN 28.3 pg (28.0-32.0); MEAN CORPUSCULAR HGB CONC 31.2 g/dL (31.0-37.0); MEAN CORPUSCULAR VOLUME 90.5 fL (80.0-94.0); MEAN PLATELET VOLUME 9.2 fl (7.4-10.4); MONOCYTES % 7.6 % (2.0-8.0); NEUTROPHILS % 64.5 % (40.0-76.0); PLATELET 173 x1000/uL (130-400); RED BLOOD CELL COUNT 3.32 mill/uL (4.7-6.1); RED CELL DISTRIBUTION WIDTH 25.1 % (11.6-14.6); WHITE BLOOD COUNT 5.5 x1000/uL (4.5-11.0)
[2024-03-27 08:53] LABS: DIFFERENTIAL COMMENT 1
[2024-03-27 08:59] LABS: ADD RBC MORPHOLOGY NO
[2024-03-27] MEDS: SODIUM CHLORIDE 0.9% IV ONE (11:59)
[2024-03-27] MEDS: SODIUM PHOSPHATE IV ONE (11:59)
[2024-03-27] MEDS: MAGNESIUM 2 G PREMIX 50 ML IV NR (15:17)
[2024-03-28] VITALS (23 sets, daily range): BP systolic 95–148; BP diastolic 50–99; PULSE 62–80; RESP 12–32; TEMP 36.05844–37.55856; O2SAT 10–100
[2024-03-28 05:51] LABS: CHLORIDE 106 mEq/L (98-107); POTASSIUM 4.5 mEq/L (3.5-5.1); SODIUM 139 mEq/L (136-145)
[2024-03-28 05:52] LABS: CALCIUM 7.8 mg/dL (8.7-10.4); CARBON DIOXIDE 28 mEq/L (21-32)
[2024-03-28 05:57] LABS: CREATININE 0.6 mg/dL (0.6-1.3); GLUCOSE 94 mg/dL (70-105); UREA NITROGEN BLOOD 20 mg/dL (9-23)
[2024-03-28 06:37] LABS: HEMATOCRIT 27.2 % (42.0-52.0); HEMOGLOBIN 8.6 g/dL (14.0-18.0); MEAN CORPUSCULAR HEMOGLOBIN 28.8 pg (28.0-32.0); MEAN CORPUSCULAR HGB CONC 31.7 g/dL (31.0-37.0); MEAN CORPUSCULAR VOLUME 90.9 fL (80.0-94.0); PLATELET 157 x1000/uL (130-400); RED BLOOD CELL COUNT 2.99 mill/uL (4.7-6.1); RED CELL DISTRIBUTION WIDTH 25.1 % (11.6-14.6); WHITE BLOOD COUNT 4.7 x1000/uL (4.5-11.0)
[2024-03-28] MEDS: MAGNESIUM 2 G PREMIX 50 ML IV SCH (10:16)
[2024-03-28] MEDS: APIXABAN 2.5 MG TABLET PO SCH (22:16)
[2024-03-29] VITALS (22 sets, daily range): BP systolic 93–137; BP diastolic 48–107; PULSE 62–108; RESP 14–37; TEMP 36.78072–38.11416; O2SAT 99–100
[2024-03-29 06:49] LABS: CARBON DIOXIDE 28 mEq/L (21-32); CHLORIDE 106 mEq/L (98-107); POTASSIUM 4.4 mEq/L (3.5-5.1); SODIUM 138 mEq/L (136-145)
[2024-03-29 06:50] LABS: CALCIUM 7.7 mg/dL (8.7-10.4)
[2024-03-29 06:53] LABS: HEMATOCRIT. 27.2 % (42.0-52.0); HEMOGLOBIN. 8.6 g/dL (14.0-18.0); MEAN CORPUSCULAR HEMOGLOBIN 28.5 pg (28.0-32.0); MEAN CORPUSCULAR HGB CONC 31.5 g/dL (31.0-37.0); MEAN CORPUSCULAR VOLUME 90.5 fL (80.0-94.0); MEAN PLATELET VOLUME 8.6 fl (7.4-10.4); PLATELET 145 x1000/uL (130-400); RED BLOOD CELL COUNT 3.01 mill/uL (4.7-6.1); RED CELL DISTRIBUTION WIDTH 25.1 % (11.6-14.6); WHITE BLOOD COUNT 3.7 x1000/uL (4.5-11.0)
[2024-03-29 06:54] LABS: DIFFERENTIAL COMMENT 1
[2024-03-29 06:55] LABS: CREATININE 0.6 mg/dL (0.6-1.3); GLUCOSE 91 mg/dL (70-105); UREA NITROGEN BLOOD 18 mg/dL (9-23)
[2024-03-29 06:57] LABS: PHOSPHORUS 3.3 mg/dL (2.5-4.9)
[2024-03-29] MEDS: MAGNESIUM GLUCONATE 500MG TABLET PO SCH (09:13)
[2024-03-29] MEDS: DEXT 5%/0.45% NACL 1000ML 1,000 ML IV SCH (15:30)
[2024-03-29 16:13] LABS: ANISOCYTOSIS 4+; PLATELET ESTIMATE NORMAL
[2024-03-29] MEDS: DIATR MEGLU/DIATRIZOATE SOLN 30ML PO NR (18:33)
[2024-03-29] MEDS ORDERED: IOHEXOL-300 100 ML BOTTLE ONE (23:24)
[2024-03-30] VITALS (24 sets, daily range): BP systolic 81–124; BP diastolic 42–101; PULSE 65–116; RESP 13–36; TEMP 36.55848–37.55856; O2SAT 96–100
[2024-03-30 07:29] LABS: HEMATOCRIT. 25.5 % (42.0-52.0); MEAN CORPUSCULAR HEMOGLOBIN 28.7 pg (28.0-32.0); MEAN CORPUSCULAR HGB CONC 31.5 g/dL (31.0-37.0); MEAN PLATELET VOLUME 9.3 fl (7.4-10.4); PLATELET 143 x1000/uL (130-400); RED CELL DISTRIBUTION WIDTH 25.2 % (11.6-14.6); WHITE BLOOD COUNT 4.1 x1000/uL (4.5-11.0)
[2024-03-30 07:34] LABS: CHLORIDE 105 mEq/L (98-107); POTASSIUM 3.6 mEq/L (3.5-5.1); SODIUM 137 mEq/L (136-145)
[2024-03-30 07:35] LABS: CARBON DIOXIDE 25 mEq/L (21-32)
[2024-03-30 07:36] LABS: CALCIUM 7.6 mg/dL (8.7-10.4)
[2024-03-30 07:40] LABS: CREATININE 0.7 mg/dL (0.6-1.3); GLUCOSE 87 mg/dL (70-105); UREA NITROGEN BLOOD 18 mg/dL (9-23)
[2024-03-30 07:42] LABS: DIFFERENTIAL COMMENT 1
[2024-03-31] VITALS (22 sets, daily range): BP systolic 73–156; BP diastolic 38–82; PULSE 69–109; RESP 11–35; TEMP 36.83628–38.00304; O2SAT 97–100
[2024-03-31 04:49] LABS: PLATELET ESTIMATE NORMAL
[2024-03-31 04:50] LABS: ANISOCYTOSIS 1+
[2024-03-31 07:57] LABS: CARBON DIOXIDE 24 mEq/L (21-32); CHLORIDE 106 mEq/L (98-107); POTASSIUM 3.7 mEq/L (3.5-5.1); SODIUM 136 mEq/L (136-145)
[2024-03-31 07:58] LABS: CALCIUM 7.3 mg/dL (8.7-10.4)
[2024-03-31 08:03] LABS: CREATININE 0.8 mg/dL (0.6-1.3); GLUCOSE 105 mg/dL (70-105); UREA NITROGEN BLOOD 19 mg/dL (9-23)
[2024-03-31 08:14] LABS: BASOPHILS % 0.4 % (0.0-2.0); EOSINOPHILS % 1.5 % (0.0-5.0); HEMATOCRIT. 23.7 % (42.0-52.0); HEMOGLOBIN. 7.7 g/dL (14.0-18.0); LYMPHOCYTES % 34.2 % (20.0-50.0); MEAN CORPUSCULAR HEMOGLOBIN 29.4 pg (28.0-32.0); MEAN CORPUSCULAR HGB CONC 32.4 g/dL (31.0-37.0); MEAN CORPUSCULAR VOLUME 90.5 fL (80.0-94.0); MEAN PLATELET VOLUME 9.5 fl (7.4-10.4); MONOCYTES % 10.2 % (2.0-8.0); NEUTROPHILS % 53.7 % (40.0-76.0); PLATELET 167 x1000/uL (130-400); RED BLOOD CELL COUNT 2.62 mill/uL (4.7-6.1); RED CELL DISTRIBUTION WIDTH 24.7 % (11.6-14.6)
[2024-03-31 08:31] LABS: DIFFERENTIAL COMMENT 1
[2024-03-31] MEDS: DEXT 5%/0.9% NACL 1,000 ML IV SCH (13:21)
[2024-03-31] MEDS: VANCOMYCIN 250MG/5ML ORAL SYRINGE GT SCH (17:58)
[2024-03-31] MEDS: ACETAMINOPHEN 325MG TABLET PO PRN (17:59)
[2024-04-01] VITALS (23 sets, daily range): BP systolic 90–142; BP diastolic 45–73; PULSE 60–89; RESP 0–29; TEMP 36.33624–37.05852; O2SAT 98–100
[2024-04-01 06:23] LABS: CARBON DIOXIDE 25 mEq/L (21-32); CHLORIDE 106 mEq/L (98-107); POTASSIUM 3.8 mEq/L (3.5-5.1); SODIUM 135 mEq/L (136-145)
[2024-04-01 06:24] LABS: CALCIUM 7.4 mg/dL (8.7-10.4)
[2024-04-01 06:25] LABS: BASOPHILS % 0.5 % (0.0-2.0); EOSINOPHILS % 0.9 % (0.0-5.0); HEMATOCRIT. 24.8 % (42.0-52.0); LYMPHOCYTES % 18.7 % (20.0-50.0); MEAN CORPUSCULAR HEMOGLOBIN 29.3 pg (28.0-32.0); MEAN CORPUSCULAR HGB CONC 32.2 g/dL (31.0-37.0); MEAN CORPUSCULAR VOLUME 91.2 fL (80.0-94.0); MEAN PLATELET VOLUME 9.2 fl (7.4-10.4); MONOCYTES % 9.1 % (2.0-8.0); NEUTROPHILS % 70.8 % (40.0-76.0); PLATELET 185 x1000/uL (130-400); RED BLOOD CELL COUNT 2.72 mill/uL (4.7-6.1); RED CELL DISTRIBUTION WIDTH 24.1 % (11.6-14.6); WHITE BLOOD COUNT 6.7 x1000/uL (4.5-11.0)
[2024-04-01 06:28] LABS: CREATININE 0.9 mg/dL (0.6-1.3); GLUCOSE 112 mg/dL (70-105)
[2024-04-01 06:29] LABS: UREA NITROGEN BLOOD 19 mg/dL (9-23)
[2024-04-01 06:30] LABS: DIFFERENTIAL COMMENT 1
[2024-04-02] VITALS (24 sets, daily range): BP systolic 89–140; BP diastolic 49–79; PULSE 60–80; RESP 13–31; TEMP 36.28068–36.72516; O2SAT 94–100
[2024-04-02] MEDS ORDERED: SENNOSIDES 8.6MG TABLET PO PRN (09:15)
[2024-04-02] MEDS: CARVEDILOL 12.5MG TABLET GT SCH (22:43)
[2024-04-03] VITALS (20 sets, daily range): BP systolic 89–164; BP diastolic 47–100; PULSE 66–96; RESP 3–32; TEMP 36.22512–37.66968; O2SAT 91–99
[2024-04-03 06:17] LABS: CARBON DIOXIDE 25 mEq/L (21-32); CHLORIDE 105 mEq/L (98-107); POTASSIUM 3.2 mEq/L (3.5-5.1); SODIUM 136 mEq/L (136-145)
[2024-04-03 06:19] LABS: CALCIUM 7.1 mg/dL (8.7-10.4)
[2024-04-03 06:23] LABS: CREATININE 0.9 mg/dL (0.6-1.3); GLUCOSE 68 mg/dL (70-105); UREA NITROGEN BLOOD 16 mg/dL (9-23)
[2024-04-03 06:25] LABS: DIGOXIN 0.8 ng/mL (0.8-2.0)
[2024-04-03 06:38] LABS: BASOPHILS % 0.5 % (0.0-2.0); EOSINOPHILS % 1.9 % (0.0-5.0); HEMATOCRIT. 23.9 % (42.0-52.0); HEMOGLOBIN. 7.8 g/dL (14.0-18.0); LYMPHOCYTES % 24.6 % (20.0-50.0); MEAN CORPUSCULAR HEMOGLOBIN 29.4 pg (28.0-32.0); MEAN CORPUSCULAR HGB CONC 32.7 g/dL (31.0-37.0); MONOCYTES % 10.9 % (2.0-8.0); NEUTROPHILS % 62.1 % (40.0-76.0); PLATELET 261 x1000/uL (130-400); RED BLOOD CELL COUNT 2.66 mill/uL (4.7-6.1); RED CELL DISTRIBUTION WIDTH 23.1 % (11.6-14.6); WHITE BLOOD COUNT 6.8 x1000/uL (4.5-11.0)
[2024-04-03 06:58] LABS: DIFFERENTIAL COMMENT 1
[2024-04-03] MEDS: POTASSIUM CHLORIDE 20MEQ/PACKET PO NR (09:53)
[2024-04-04] VITALS (23 sets, daily range): BP systolic 94–127; BP diastolic 54–91; PULSE 58–79; RESP 11–34; TEMP 36.6696–37.05852; O2SAT 92–100
[2024-04-04] MEDS: CARVEDILOL 6.25 MG TABLET PO SCH (20:48)
[2024-04-05] VITALS (21 sets, daily range): BP systolic 104–142; BP diastolic 54–72; PULSE 62–79; RESP 10–38; TEMP 36.61404–36.83628; O2SAT 98–100
[2024-04-05 06:05] LABS: CALCIUM 7.1 mg/dL (8.7-10.4); CARBON DIOXIDE 23 mEq/L (21-32); CHLORIDE 104 mEq/L (98-107); POTASSIUM 3.5 mEq/L (3.5-5.1); SODIUM 134 mEq/L (136-145)
[2024-04-05 06:06] LABS: BASOPHILS % 0.6 % (0.0-2.0); EOSINOPHILS % 3.6 % (0.0-5.0); HEMATOCRIT. 25.1 % (42.0-52.0); LYMPHOCYTES % 26.3 % (20.0-50.0); MEAN CORPUSCULAR HEMOGLOBIN 28.9 pg (28.0-32.0); MEAN CORPUSCULAR VOLUME 90.5 fL (80.0-94.0); MEAN PLATELET VOLUME 8.8 fl (7.4-10.4); MONOCYTES % 10.4 % (2.0-8.0); NEUTROPHILS % 59.1 % (40.0-76.0); PLATELET 296 x1000/uL (130-400); RED BLOOD CELL COUNT 2.78 mill/uL (4.7-6.1); RED CELL DISTRIBUTION WIDTH 23.4 % (11.6-14.6); WHITE BLOOD COUNT 6.2 x1000/uL (4.5-11.0)
[2024-04-05 06:11] LABS: CREATININE 1.1 mg/dL (0.6-1.3); GLUCOSE 77 mg/dL (70-105); UREA NITROGEN BLOOD 15 mg/dL (9-23)
[2024-04-05 06:17] LABS: DIFFERENTIAL COMMENT 1
[2024-04-05] MEDS: KCL 20MEQ/100ML PREMIX 100 ML IV NR (17:14)
[2024-04-05] MEDS: DIGOXIN 125MCG TABLET GT SCH (18:00)
[2024-04-11 15:12] LABS: OVA & PARASITE EXAM Final report (.)
== END 2024-04-06 00:06 | DRG 3 ==
LOC: ER 22:29 → EDBEDREQ 23:01 → MICUSO 03-13 00:52 → EDBEDREQDT 03-13 02:00 → EDBEDREQSVC 03-13 02:00 → EDBEDREQTM 03-13 02:00 → EDBEDREQ 03-13 02:00 → 5EST 03-22 22:00
PROVIDERS: ADMIT Family Medicine Adult Medicine; ATTEND Family Medicine Adult Medicine
PROC: 5A1955Z Respiratory Ventilation, Greater than 96 Consecutive Hours (ICD-10-PCS; 2024-03-13)
PROC: 0BH17EZ Insertion of Endotracheal Airway into Trachea, Via Natural or Artificial Opening (ICD-10-PCS; 2024-03-13)
PROC: 02HV33Z Insertion of Infusion Device into Superior Vena Cava, Percutaneous Approach (ICD-10-PCS; 2024-03-13)
PROC: B548ZZA Ultrasonography of Superior Vena Cava, Guidance (ICD-10-PCS; 2024-03-13)
PROC: 0W9930Z Drainage of Right Pleural Cavity with Drainage Device, Percutaneous Approach (ICD-10-PCS; 2024-03-16)
PROC: 0W9B3ZZ Drainage of Left Pleural Cavity, Percutaneous Approach (ICD-10-PCS; 2024-03-20)
PROC: 0B110F4 Bypass Trachea to Cutaneous with Tracheostomy Device, Open Approach (ICD-10-PCS; principal; 2024-03-22)
PROC: 0WP9X0Z Removal of Drainage Device from Right Pleural Cavity, External Approach (ICD-10-PCS; 2024-03-22)
PROC: 0JBR0ZZ Excision of Left Foot Subcutaneous Tissue and Fascia, Open Approach (ICD-10-PCS; 2024-03-23)
PROC: 0DB78ZX Excision of Stomach, Pylorus, Via Natural or Artificial Opening Endoscopic, Diagnostic (ICD-10-PCS; 2024-03-23)
PROC: 0DH63UZ Insertion of Feeding Device into Stomach, Percutaneous Approach (ICD-10-PCS; 2024-03-23)
DX: A41.51 Sepsis due to Escherichia coli [E. coli] (principal); I21.4 Non-ST elevation (NSTEMI) myocardial infarction; R65.21 Severe sepsis with septic shock; K72.00 Acute and subacute hepatic failure without coma; J96.21 Acute and chronic respiratory failure with hypoxia; J96.22 Acute and chronic respiratory failure with hypercapnia; N17.0 Acute kidney failure with tubular necrosis; G93.41 Metabolic encephalopathy; L89.154 Pressure ulcer of sacral region, stage 4; L89.314 Pressure ulcer of right buttock, stage 4; L89.324 Pressure ulcer of left buttock, stage 4; E87.0 Hyperosmolality and hypernatremia; E87.29 Other acidosis; D68.9 Coagulation defect, unspecified; I31.39 Other pericardial effusion (noninflammatory); I48.92 Unspecified atrial flutter; I13.0 Hypertensive heart and chronic kidney disease with heart failure and stage 1 through stage 4 chronic kidney disease, or unspecified chronic kidney disease; J94.8 Other specified pleural conditions; J98.19 Other pulmonary collapse; J91.8 Pleural effusion in other conditions classified elsewhere; E46 Unspecified protein-calorie malnutrition; I96 Gangrene, not elsewhere classified; Z99.11 Dependence on respirator [ventilator] status; K56.7 Ileus, unspecified; I50.22 Chronic systolic (congestive) heart failure; L89.620 Pressure ulcer of left heel, unstageable; L89.616 Pressure-induced deep tissue damage of right heel; N30.20 Other chronic cystitis without hematuria; E88.09 Other disorders of plasma-protein metabolism, not elsewhere classified; K56.41 Fecal impaction; K80.20 Calculus of gallbladder without cholecystitis without obstruction; D63.1 Anemia in chronic kidney disease; I51.3 Intracardiac thrombosis, not elsewhere classified; E87.5 Hyperkalemia; K29.50 Unspecified chronic gastritis without bleeding; D50.0 Iron deficiency anemia secondary to blood loss (chronic); K40.90 Unilateral inguinal hernia, without obstruction or gangrene, not specified as recurrent; N20.0 Calculus of kidney; I49.1 Atrial premature depolarization; I48.91 Unspecified atrial fibrillation; K52.89 Other specified noninfective gastroenteritis and colitis; R62.7 Adult failure to thrive; N28.1 Cyst of kidney, acquired; D69.6 Thrombocytopenia, unspecified; N18.9 Chronic kidney disease, unspecified; N13.9 Obstructive and reflux uropathy, unspecified; E86.1 Hypovolemia; I25.10 Atherosclerotic heart disease of native coronary artery without angina pectoris; I45.10 Unspecified right bundle-branch block; T36.8X5A Adverse effect of other systemic antibiotics, initial encounter; Y92.89 Other specified places as the place of occurrence of the external cause; Z86.73 Personal history of transient ischemic attack (TIA), and cerebral infarction without residual deficits; Z87.440 Personal history of urinary (tract) infections; Z79.899 Other long term (current) drug therapy; Z74.01 Bed confinement status; Z68.29 Body mass index [BMI] 29.0-29.9, adult; Z87.828 Personal history of other (healed) physical injury and trauma; Z79.01 Long term (current) use of anticoagulants
CPT/HCPCS: 31500; 32555; 36415; 36600; 71045; 71250; 73630; 74018; 74176; 74177; 76700; 76705; 76770; 77012; 80048; 80053; 80076; 80162; 80202; 81003; 82040; 82150; 82248; 82375; 82550; 82805; 82962; 83605; 83615; 83735; 84100; 84134; 84145; 84478; 84484; 85014; 85018; 85025; 85027; 86038; 86160; 86705; 86709; 86850; 86900; 87015; 87045; 87070; 87077; 87106; 87177; 87186; 87209; 87340; 87427; 87449; 87493; 87804; 88305; 88312; 88313; 89055; 93005; 93306; 93922; 94003; 99291; A6261; C1729; J0282; J0295; J0610; J1160; J1650; J1815; J1940; J2060; J2185; J2248; J2250; J2270; J2470; J2543; J2704; J2765; J2997; J3010; J3370; J3475; J3480; J3490; J7030; J7042; J7050; J7060; J7070; Q9963; Q9967